=== PATIENT | female | born 2000 | race Caucasian/White ===

== ENCOUNTER 2025-04-02 10:55 | Emergency (ER) | payer SELFPAY ==
[~2025-04-02] VITALS: Ht 167.6 cm; Wt 77.1 kg
[2025-04-02 11:55] VITALS: TEMP 97.7
[2025-04-02] MEDS: SODIUM CHLORIDE 0.9% 1000ML 1,000 ML IV STA (12:38)
[2025-04-02] MEDS: ONDANSETRON HCL INJ 2MG/ML 2ML 2 MG/ML VIAL IV STA (12:39)
[2025-04-02] MEDS: LORAZEPAM INJ 2 MG/ML VIAL IV ONE (12:40)
[2025-04-02] MEDS: DIPHENHYDRAMINE HCL INJ 50 MG/ML VIAL IV ONE (12:40)
[2025-04-02 12:50] LABS: BASOPHILS % 0.6 % (0.0-1.0); EOSINOPHILS % 3.4 % (0.0-6.0); LYMPHOCYTES % 30.6 % (18.0-39.1); MONOCYTES % 6.3 % (4.4-11.3); NEUTROPHILS % 58.9 % (38.7-80.0); RED CELL DISTRIBUTION WIDTH 12.2 % (11.7-14.4)
[2025-04-02 13:06] LABS: INR 0.96
[2025-04-02 13:15] LABS: CHOL/HDL RATIO 3.3 (3.0-3.6); LDL CHOLESTEROL 106.0 MG/DL (60-130)
[2025-04-02 13:18] LABS: EST GLOMERULAR FILTRATION RATE 124 ML/MIN (>=60)
[2025-04-02] MEDS ORDERED: IOPAMIDOL 370 MG/ML 100 ML INFUS..BTL INJ ONE (13:24)
[2025-04-02 15:23] LABS: LEUKOCYTE ESTERASE ,URINE NEGATIVE (NEGATIVE); PROTEIN,URINE DIPSTICK NEGATIVE (NEGATIVE)
[2025-04-02 15:24] LABS: AMPHETAMINES SCREEN,URINE NEGATIVE (NEGATIVE); CANNABINOIDS SCREEN,URINE POSITIVE (NEGATIVE); COCAINE SCREEN,URINE NEGATIVE (NEGATIVE); METHADONE SCREEN, URINE NEGATIVE (NEGATIVE); OPIATES SCREEN,URINE NEGATIVE (NEGATIVE); URINE UROBILINOGEN 0.2 mg/dL (0.2 - 1)
[2025-04-02 15:29] LABS: EPITHELIAL CELLS,URINE FEW /LPF; WBC,URINE (MAN) 0-5 /HPF (0-5)
[2025-04-02] MEDS ORDERED: PREDNISONE50 MG PO (16:21)
[2025-04-02] MEDS ORDERED: ONDANSETRON ODT4 MG PO (16:21)
[2025-04-02] MEDS ORDERED: DICYCLOMINE HCL20 MG PO (16:21)
[2025-04-02 16:24] VITALS: PULSE 82; RESP 18
[2025-04-02 16:54] VITALS: BP 110/83; PULSE 79; RESP 18; O2SAT 100
== END 2025-04-02 17:01 | disposition home or self-care (01) ==
LOC: ER 12:22
DX: R11.2 Nausea with vomiting, unspecified (principal); K52.9 Noninfective gastroenteritis and colitis, unspecified; R10.9 Unspecified abdominal pain; F12.90 Cannabis use, unspecified, uncomplicated; Z86.73 Personal history of transient ischemic attack (TIA), and cerebral infarction without residual deficits
CPT/HCPCS: 36415; 74177; 80053; 80061; 80307; 81001; 83690; 83735; 84484; 84702; 85025; 85610; 85730; 93005; 99284; J1200; J2060; J2405; J2470; J7030; Q9967